=== PATIENT | male | born 1985 | race Caucasian/White ===

== ENCOUNTER → 2022-11-14 14:41 | Outpatient (BNVA) | payer OTHER, SELFPAY | PROVIDERS: Visit Provider Orthopaedic Surgery | DX: Z00.00 Encounter for general adult medical examination without abnormal findings (principal) ==

== ENCOUNTER 2022-11-19 12:46 | Outpatient (REF) | payer OTHER, SELFPAY ==
[2022-11-19 13:58] LABS: MANUAL DIFF FLAG NO
[2022-11-19 14:06] LABS: Basophils Absolute Auto 0.1 X10*3/uL (0.0-0.2); Basophils Percent Auto 0.9 % (0-2); Eosinophils Absolute Auto 0.2 X10*3/uL (0.0-0.4); Hematocrit 47.8 % (42.0-52.0); Hemoglobin 15.8 g/dl (14.0-18.0); Imm Gran Abs Auto 0.11 X10*3/uL (0.00-0.03); Imm Gran Pct Auto 1.6 % (0.0-0.4); Lymphocytes Absolute Auto 1.4 X10*3/uL (1.2-4.9); Lymphocytes Percent Auto 20.5 % (20-40); Mean Corpuscular HGB Conc 33.1 g/dl (31.0-36.0); Mean Corpuscular Hemoglobin 29.2 pg (27.0-33.0); Mean Corpuscular Volume 88.4 fL (80.0-98.0); Mean Platelet Volume 9.8 fL (9.4-12.4); Monocytes Absolute Auto 0.4 X10*3/uL (0.1-1.2); Monocytes Percent Auto 5.8 % (2-11); Neutrophils Absolute Auto 4.7 x10*3/uL (2.0-8.3); Neutrophils Percent Auto 68.2 % (45-73); Platelet Count 277 X10*3/uL (160-400); Red Blood Count 5.41 X10*6/uL (4.60-5.80); Red Cell Distribution Width 12.2 % (11.0-16.0); White Blood Count 6.9 X10*3/uL (4.8-10.8)
[2022-11-19 14:39] LABS: Alanine Aminotransferase 19 U/L (0-40); Albumin Level 4.4 g/dL (3.5-5.0); Alkaline Phosphatase 70 U/L (39-117); Anion Gap 11 (12-20); Aspartate Amino Transferase 20 U/L (5-37); Bilirubin Direct < 0.2 mg/dL (0.0-0.5); Bilirubin Total 0.5 mg/dL (0.0-1.0); Blood Urea Nitrogen 12 mg/dL (9-16); Calcium 9.6 mg/dL (8.4-10.2); Carbon Dioxide 27 mmol/L (22-29); Chloride 108 mmol/L (96-108); Cholesterol 203 mg/dL; Estimated Glomerular Filt Rate > 60; Glucose Fasting 92 mg/dL (60-99); HDL Cholesterol 44 mg/dL; Insulin 8 uU/mL (2-29); LDL Cholesterol Calculated 127 mg/dl; Potassium 4.7 mmol/L (3.3-5.1); Sodium 141 mmol/L (135-145); TSH reflex Free T4 0.57 uIU/mL (0.32-4.0); Total Protein 6.7 g/dL (6.5-8.0); Triglycerides 161 mg/dL
[2022-11-21 14:33] LABS: CRP High Sensitivity 1.6 mg/L
[2022-11-24 06:43] LABS: Apolipoprotein B 117 mg/dL (<90)
[2022-11-24 23:33] LABS: Dihydrotestosterone 48 ng/dL (12-65)
[2022-12-01 10:28] LABS: Testosterone, Free 92.2 pg/mL (35.0-155.0); Testosterone, Total 504 ng/dL (250-1100)
== END 2022-11-19 12:47 | disposition home or self-care (01) ==
LOC: HO.10HDL 12:46
PROVIDERS: Visit Provider Orthopaedic Surgery
DX: Z00.00 Encounter for general adult medical examination without abnormal findings (principal); Z13.220 Encounter for screening for lipoid disorders; Z13.29 Encounter for screening for other suspected endocrine disorder
CPT/HCPCS: 36415; 80048; 80061; 80076; 82172; 82642; 83525; 84402; 84403; 84443; 85025; 86141

== ENCOUNTER 2022-12-23 10:51 | Outpatient (REF) | payer OTHER, SELFPAY ==
[2022-12-28 11:44] LABS: Apolipoprotein A1 132 mg/dL (>=115)
== END 2022-12-23 10:52 | disposition home or self-care (01) ==
LOC: HO.10HDL 10:51
PROVIDERS: Visit Provider Orthopaedic Surgery
DX: E78.5 Hyperlipidemia, unspecified (principal)
CPT/HCPCS: 36415; 82172

== ENCOUNTER → 2022-12-25 14:20 | Outpatient (REF) | payer OTHER, SELFPAY | LOC: HO.SL 14:20 | PROVIDERS: Visit Provider Orthopaedic Surgery | DX: Z00.00 Encounter for general adult medical examination without abnormal findings (principal); R03.0 Elevated blood-pressure reading, without diagnosis of hypertension; G47.9 Sleep disorder, unspecified | CPT/HCPCS: 95806 ==

== ENCOUNTER 2024-11-05 14:59 | Outpatient (RCR) | payer BC, SELFPAY ==
--- NOTE | 2024-09-20 18:22 | MHC.PT.EP ---
[facility] [place] [facility] [place] [facility] [place] Office [address] Carlos Jasmine [address] [phone] F: [phone] F: [phone] F: [phone] F: [phone] Physical Therapy Plan of Care Date of Evaluation: 09/20/24 Date of Surgery: 06/30/24 Diagnosis: R quadriceps femoris muscle (RL) Assessment: pt is a 39 y/o male presenting to physical therapy w/ referring diagnosis of right quadriceps femoris muscle. pt underwent quad tendon repair on 06/30/24. He is currently 12 weeks and 5 days post-op w/ significant limitations in both range and strength. We will institute a stiff knee protocol and assess progress w/ frequent ROM measurements. Impairments include pain, decreased range of motion, decreased strength, impaired functional mobility, impaired postural awareness, and altered ambulation mechanics. pt is a good candidate for skilled PT due to age, potential remediation of impairments, typical disease/condition progression and prognosis, comorbidities, and motivation. pt would benefit from skilled PT intervention to provide a tailored strengthening and stretching exercise program, functional training, gait training, postural re-training, neuromuscular re-education, modalities as needed for pain, equipment safety demonstration. Frequency and Duration: The patient will be seen 2x/wk for 8 wks Short Term Goals: pt will be I w/ HEP to promote self-management of post-operative status. pt will improve R knee extension ROM by 10 degrees to promote ease in prolonged standing. pt will improve R hamstring strength by 1 MMT to promote ease in sit<>stand transfers. Investor Relations Specialist Goals: pt will report a statistically significant improvement in self-reported outcome measure, LEFI, to promote return to PLOF. pt will improve R knee flexion to at least 110* to promote ease in descending stairs. pt will participate in 500' of jogging w/ reports of <2/10 R knee pain to promote return to exercise. Treatment Plan: Modalities to reduce pain, spasms and effusion. Manual therapy to restore motion and function. Therapeutic exercise to improve strength and flexibility. Neuromuscular re-education for posture and balance. Therapeutic activities to return to functional activities of daily living. Electronically signed by: Lita Islas PT, DPT Please sign and return to therapist. Thank you for your referral.
--- NOTE | 2024-12-22 11:40 | MHC.PT.DC ---
[facility] [place] Office [place] Office [place] Office [address] Carlos Jasmine [address] [facility] [phone] F: [phone] F: [phone] F: [phone] F: [phone] Physical Therapy Discharge Report Diagnosis: R quadriceps femoris muscle (RL) Date of Surgery: 06/30/24 Date of Evaluation: 09/20/24 Date of Discharge: 12/22/24 Treatments to Date: 7 Cancellations to Date: 5 No Shows to Date: 0 Discharge Status: Visit Non-compliance Discharge Summary: The patient was progressing regarding his knee range of motion and strength of the lower extremity. Unfortunately, he was lost to follow-up and has not scheduled any additional appointments. He has not been seen since 11/05/24 so his current status is unknown. He is discharged from this PT plan of care. Electronically signed by: Lita Islas PT, DPT Please sign and return to therapist. Thank you for your referral.
== END 2024-12-22 11:40 | disposition home or self-care (01) ==
LOC: HO.PT 14:59
PROVIDERS: Visit Provider Orthopaedic Surgery
DX: S76.101A Unspecified injury of right quadriceps muscle, fascia and tendon, initial encounter (principal)
CPT/HCPCS: 97110; 97112; 97140; 97161